=== PATIENT | male | born 1995 | race Hispanic/Latino ===

== ENCOUNTER 2025-08-18 07:56 | Day surgery (SDC) | payer OTHER ==
[2025-08-17 15:06] LABS: Absolute Lymphocytes (CBC) 2.4 K/uL (0.7-4.9); Hematocrit 37.6 % (39.6-49.0); Hemoglobin 12.5 g/dL (13.6-17.9); MCH 27.1 pg (27.0-35.0); MCHC 33.3 g/dL (32.0-36.0); MCV 81.3 fL (80-100); MPV 10.0 fL (7.6-11.3); Nucleated RBC Absolute Count 0.0 (0-0); Nucleated Red Blood Cells % 0.0 % (0-0); RBC Red Blood Cell Count 4.63 M/uL (4.33-5.43); White Blood Count 10.30 thou/uL (4.3-10.9)
[2025-08-18] MEDS: Ringers Lactate 1,000 ML IV ONE (08:30)
[2025-08-18] MEDS ORDERED: KETOROLAC 30 MG/ML INJ ONE (09:46)
[2025-08-18] MEDS ORDERED: LIDOCAINE 1% MPF 5 ML VIAL ONE (09:46)
[2025-08-18] MEDS ORDERED: MIDAZOLAM HCL 2 MG/2 ML INJ ONE (09:46)
[2025-08-18] MEDS ORDERED: FENTANYL CITR 100 MCG/2 ML ONE (09:46)
[2025-08-18] MEDS ORDERED: ROCURONIUM 50 MG/5 ML VIAL IV ONE (09:46)
[2025-08-18] MEDS: CEFAZOLIN SODIUM 2 GM/VIAL ONE (10:00)
[2025-08-18] MEDS ORDERED: ONDANSETRON 4 MG/2 ML VIAL ONE (10:10)
[2025-08-18] MEDS ORDERED: GLYCOPYRROLATE 0.2 MG/ML SYR ONE (10:22)
[2025-08-18] MEDS ORDERED: NEOSTIGMINE 1 MG/ML -10 ML VIAL ONE (10:22)
--- NOTE | 2025-08-18 10:30 | P.OP ---
Date of Service: 08/18/25 Preop diagnosis: Thrombosed and bleeding hemorrhoid Postop diagnosis: Same Procedure performed: Examiner under anesthesia, proctoscopy and hemorrhoidectomy Surgeon: Andrew Valle MD Pipelaying Fitter: None Estimated blood loss: Minimal Specimen: Thrombosed hemorrhoid Findings: As above with raised edges around the thrombus Anesthesia: General Complications: None Drains: None Fluids and blood products: Nonapplicable Disposition: Recovery room Operative note: Patient brought to the OR and placed in the supine position. General anesthesia began. Patient placed in the lithotomy position. Patient prepped and draped in usual sterile fashion. Examiner anesthesia revealed a large thrombosed hemorrhoid in the left lateral position. The edges of the hemorrhoid appear to be raised. Proctoscopy did not reveal any evidence of intraluminal disease. Harmonic scalpel used to excise the entire external thrombosed hemorrhoid. Bleeding controlled cautery. Specimen sent to pathology. Avitene and Surgicel used to help prevent rebleeding. Marcaine 0.5% infiltrated locally. Sterile dressing applied. Patient awakened and taken to recovery room in good general condition. CC:
[2025-08-18] MEDS: HYDROMORPHONE HCL 0.5 MG/0.5 ML INJ ONE (11:01)
[2025-08-18] MEDS ORDERED: HYDROCODONE/APAP 7.5/325 MG TAB ONE (11:28)
[2025-08-18] MEDS: HYDROCODONE/APAP 7.5/325 MG TAB PO PRN (11:29)
[2025-08-18 12:28] VITALS: BP 120/71; TEMP 97.2; O2SAT 99
== END 2025-08-18 12:12 | disposition home or self-care (01) ==
LOC: OR 07:56
PROVIDERS: ATTEND Surgery
PROC: 0DJD8ZZ Inspection of Lower Intestinal Tract, Via Natural or Artificial Opening Endoscopic (ICD-10-PCS; 2025-08-18)
PROC: 06BY0ZC Excision of Hemorrhoidal Plexus, Open Approach (ICD-10-PCS; principal; 2025-08-18 09:15)
DX: K64.5 Perianal venous thrombosis (principal)
CPT/HCPCS: 85025; 36415; 88304; 46320; 45300; J1885; J2704; J2710; J2003; J2250; J3010; J1171; J2405; J7120